=== PATIENT | female | born 1970 | race Caucasian/White ===

== ENCOUNTER 2020-01-01 07:57 | Day surgery (SDC) | payer BC, SELFPAY ==
[~2020-01-01 07:57] MED LIST: Lactated Ringers 1,000 ML IV SCH; Lidocaine 1%/Sod Bicarbonate in NS 8.4% 1 ML Syringe IDERM PRN; Sodium Chloride 0.9% 10 ML Syringe FLUSH PRN
--- NOTE | 2020-01-01 08:22 | PCM.PREANE ---
Preanesthetic Assessment - Anesthesia/Transfusion/Family Hx Anesthesia History: Prior Anesthesia Without Reaction Family History of Anesthesia Reaction: No Transfusion History: No Prior Transfusion(s) Intubation History: Unknown - Review of Systems General: No Symptoms Pulmonary: Cough, Sputum Cardiovascular: No Symptoms Gastrointestinal: No Symptoms Neurological: No Symptoms (Lower back pain:0/10, Right pelvic discomfort rated 1-2/10), Numbness (Right thumb and fingers.) Other: Reports: Sinus Problem (allergic rhinitis/seasonal allergies), Anxiety - Physical Assessment NPO Status Date: 12/31/19 NPO Status Time: 23:30 Vital Signs: HR: 76 B/P: 132/94 Sat: 97% Resp: 16 Temp: 97.4 Height: 1.68 m Weight: 71.668 kg ASA Class: 2 Mental Status: Alert & Oriented x3 Airway Class: Mallampati = 2 Dentition: Reports: Normal Dentition, Caries Thyro-Mental Finger Breadths: 3 Mouth Opening Finger Breadths: 3 ROM/Head Extension: Full Lungs: Clear to Auscultation, Normal Respiratory Effort Cardiovascular: Regular Rate, Regular Rhythm, No Murmurs - Lab Values: Laboratory Last Values WBC 6.61 K/mm3 (3.98-10.04) 12/28/19 07:45 RBC 3.99 M/mm3 (3.98-5.22) 12/28/19 07:45 Hgb 12.0 gm/dl (11.2-15.7) 12/28/19 07:45 Hct 37.5 % (34.1-44.9) 12/28/19 07:45 MCV 94.0 fl (79.4-94.8) 12/28/19 07:45 MCH 30.1 pg (25.6-32.2) 12/28/19 07:45 MCHC 32.0 g/dl (32.2-35.5) L 12/28/19 07:45 RDW Std Deviation 44.7 fL (36.4-46.3) 12/28/19 07:45 Plt Count 391 K/mm3 (182-369) H 12/28/19 07:45 MPV 9.4 fl (9.4-12.3) 12/28/19 07:45 Neut % (Auto) 62.4 % (34.0-71.1) 12/28/19 07:45 Lymph % (Auto) 21.9 % (19.3-51.7) 12/28/19 07:45 [place] % (Auto) 5.9 % (4.7-12.5) 12/28/19 07:45 Eos % (Auto) 9.1 (0.7-5.8) H 12/28/19 07:45 Baso % (Auto) 0.5 % (0.1-1.2) 12/28/19 07:45 Neut # (Auto) 4.13 K/mm3 (1.56-6.13) 12/28/19 07:45 Lymph # (Auto) 1.45 K/mm3 (1.18-3.74) 12/28/19 07:45 [place] # (Auto) 0.39 K/mm3 (0.24-0.36) H 12/28/19 07:45 Eos # (Auto) 0.60 K/mm3 (0.04-0.36) H 12/28/19 07:45 Baso # (Auto) 0.03 K/mm3 (0.01-0.08) 12/28/19 07:45 Urine Color Yellow (Yellow) 12/28/19 08:56 Urine Appearance Clear (Clear) 12/28/19 08:56 Urine pH 6.0 (5.0-8.0) 12/28/19 08:56 Ur Specific [place] 1.025 (1.005-1.030) 12/28/19 08:56 Urine Protein Negative (Negative) 12/28/19 08:56 Urine Glucose (UA) Negative (Negative) 12/28/19 08:56 Urine Ketones Negative (Negative) 12/28/19 08:56 Urine Occult Blood Negative (Negative) 12/28/19 08:56 Urine Nitrite Negative (Negative) 12/28/19 08:56 Urine Bilirubin Negative (Negative) 12/28/19 08:56 Urine Urobilinogen 0.2 (0.2-1.0) 12/28/19 08:56 Ur Leukocyte Esterase Negative (Negative) 12/28/19 08:56 Urine RBC 0-5 /hpf (0-5) 12/28/19 08:56 Urine WBC 0-5 /hpf (0-5) 12/28/19 08:56 Ur Squamous Epith Cells 0-5 /hpf (0-5) 12/28/19 08:56 Urine Bacteria Rare /hpf (FEW) 12/28/19 08:56 Urine Mucus Not seen /hpf (FEW) 12/28/19 08:56 All labs reviewed and noted and within acceptable ranges to proceed with scheduled procedure. - Allergies Allergies/Adverse Reactions: Allergies Allergy/AdvReac Type Severity Reaction Status Date / Time No Known Allergies Allergy Verified 12/31/19 14:10 - Anesthesia Plan Pre-Op Medication Ordered: None - Acknowledgements Anesthesia Type Planned: MAC Pt an Appropriate Candidate for the Planned Anesthesia: Yes Alternatives and Risks of Anesthesia Discussed w Pt/Guardian: Yes Pt/Guardian Understands and Agrees with Anesthesia Plan: Yes PreAnesthesia Questionnaire HEENT History: Reports: Allergic Rhinitis, Impaired Vision, Other (See Below) Other HEENT History: oral surgery Cardiovascular History: Reports: None Respiratory History: Reports: None Gastrointestinal History: Reports: Other (See Below) Other Gastrointestinal History: elevated ALT Genitourinary History: Reports: None 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: 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: Other (See Below) Other OB/BYN History: dysmenorrhea, heavy menses, cervic cryosurgery Musculoskeletal History: Reports: Back Pain, Chronic, Other (See Below) Other Musculoskeletal History: muscle spasms Neurological History: Reports: None Psychiatric History: Reports: Anxiety, Other (See Below) Other Psychiatric History: fatigue Endocrine/Metabolic History: Reports: None Hematologic History: Reports: None Immunologic History: Reports: None Oncologic (Cancer) History: Reports: None Dermatologic History: Reports: None - Past Surgical History Head Surgeries/Procedures: Reports: None HEENT Surgical History: Reports: None Cardiovascular Surgical History: Reports: None Respiratory Surgical History: Reports: None GI Surgical History: Reports: None Female Surgical History: Reports: None Male Surgical History: Reports: None Endocrine Surgical History: Reports: None Neurological Surgical History: Reports: None Musculoskeletal Surgical History: Reports: None Oncologic Surgical History: Reports: None Dermatological Surgical History: Reports: None - SUBSTANCE USE Smoking Status *Q: Never Smoker Recreational Drug Use History: No - HOME MEDS Home Medications: Home Meds Cyclobenzaprine [Flexeril] 10 mg PO BEDTIME PRN 12/31/19 [History] Fluocinonide [Lidex 0.05% Crm] 1 dose TOP ASDIRECTED PRN 12/31/19 [History] Lodoxamide [Alomide] 1 drop EYEBOTH ASDIRECTED PRN 12/31/19 [History] Multivitamin 1 tab PO DAILY 12/31/19 [History] Multivitamin with Minerals [Hair, Skin and Nails] 1 tab PO DAILY 12/31/19 [History] Naproxen 500 mg PO Q12H PRN 12/31/19 [History] Niacin 500 mg PO DAILY 12/31/19 [History] diphenhydrAMINE HCL [Benadryl Allergy] 25 mg PO BEDTIME PRN 12/31/19 [History] - CURRENT (IN HOUSE) MEDS Current Meds: Current Medications Lactated Ringer's (Ringers, Lactated) 1,000 mls @ 125 mls/hr IV ASDIRECTED RICO Stop: 01/01/20 23:00 Lidocaine/Sodium Bicarbonate (Buffered Lidocaine 1% In Ns 8.4%) 0.25 ml IDERM ONETIME PRN PRN Reason: Prior to IV Start Stop: 01/01/20 18:00 Sodium Chloride (Saline Flush) 10 ml FLUSH ASDIRECTED PRN PRN Reason: Keep Vein Open Stop: 01/01/20 18:00
[2020-01-01] MEDS ORDERED: Lidocaine 1% 4 ML ONE (09:18)
[2020-01-01] MEDS ORDERED: Propofol 200 MG/20 ML SDV ONE (09:18)
[2020-01-01] MEDS ORDERED: Midazolam 1 MG/ML 2 ML SDV ONE (09:19)
[2020-01-01] MEDS ORDERED: fentaNYL 100 MCG/2 ML SDV ONE (09:21)
[2020-01-01] MEDS ORDERED: Ketorolac 30 MG/ML SDV ONE (09:40)
[2020-01-01] MEDS ORDERED: Ondansetron 4 MG/2 ML SDV ONE (09:41)
--- NOTE | 2020-01-01 10:10 | PCM48HPAN ---
Post Anesthesia Note - EVALUATION WITHIN 48HRS OF ANESTHETIC Vital Signs in Normal Range: Yes Patient Participated in Evaluation: Yes Respiratory Function Stable: Yes Airway Patent: Yes Cardiovascular Function Stable: Yes Hydration Status Stable: Yes Pain Control Satisfactory: Yes Nausea and Vomiting Control Satisfactory: Yes Mental Status Recovered: Yes Vital Signs: Last Vital Signs Temp 36.3 C 01/01/20 08:15 Pulse 76 01/01/20 08:15 Resp 16 01/01/20 08:15 BP 132/94 H 01/01/20 08:15 Pulse Ox 97 01/01/20 08:15
[2020-01-01] MEDS ORDERED: Ondansetron 4 MG/2 ML SDV IVPUSH PRN (10:12)
[2020-01-01] MEDS ORDERED: Acetaminophen/oxyCODONE 325-5 MG Tab PO PRN (10:12)
--- NOTE | 2020-01-01 10:18 | PCM.OPNOTE ---
- General Post-Op/Procedure Note Date of Surgery/Procedure: 01/01/20 Operative Procedure(s): Hysteroscopy and dilation and curettage Findings: Uterus sounded to approximately 8 cm. There was what appears to be fibroid which is subendometrial/intramural extending into the myometrium posteriorly approximately 1 cm in diameter in the mid posterior wall of the uterus. There is another fibroid approximately the same size and in the same subendometrial/intramural position located in the lower left portion of the uterus just inside the internal os. No significant abnormalities otherwise were noted. Tubal ostia were identified. On bimanual exam under anesthesia no abnormalities were noted. Pre Op Diagnosis: 1. Postmenopausal uterine bleeding. 2. Thickened endometrium. 3. Dysmenorrhea Post-Op Diagnosis: Same with uterine fibroids [id number] wall of the uterus. Anesthesia Technique: MAC Primary Surgeon: Fabrizio Azul Secondary Surgeon: uJne Sandoval Anesthesia Provider: Aida Mendiola Pathology: Endometrial curettings Fluid Replacement, Intraop: 700 EBL in mLs: 20 Complications: None Condition: Good Free Text/Narrative:: Surgery duration: 8 minutes Procedure: The patient is taking the operative placed in a supine position on the operating table. She received 2 g of Ancef preoperatively for infection prophylaxis and had sequential compression stockings in place for DVT prophylaxis. Patient was given MAC anesthesia. She is placed in a dorsal lithotomy position and prepped and draped in usual fashion. An exam under anesthesia was performed. Findings as described above. A weighted speculum was placed in the vagina. Cervix is visualized. It was grasped anteriorly with a single-tooth tenaculum. Uterus was then sounded to a depth of 8 cm. It is from the anterior, mid position. The cervix was dilated to entrance of a 5 mm 12 rigid hysteroscope. This was placed without problem and normal saline was used as a distending medium. The Julio Cesar cavity was visualized. Findings as described above. Findings were as described above. No polypoid structures were noted. Only the 2 fibroids as described above.. After this is performed a D&C was performed. Moderate amount tissue was obtained. Minimal bleeding was encountered. Hysteroscope was then placed back into the endometrial cavity. Blood was flushed out and the findings were consistent relatively normal-appearing endometrial cavity. At this point the scope was removed. The vagina was cleared of old blood, the cervix was released and the weighted speculum was removed. Patient was returned to supine position and awakened from general anesthesia. She tolerated the procedure well and operating room in good condition.
== END 2020-01-01 11:09 | disposition home or self-care (01) ==
LOC: JD.SDS 07:57
PROVIDERS: ATTEND Obstetrics & Gynecology
DX: D25.1 Intramural leiomyoma of uterus (principal); N85.8 Other specified noninflammatory disorders of uterus; F41.9 Anxiety disorder, unspecified; Z79.899 Other long term (current) drug therapy
CPT/HCPCS: 36415; 58558; 81001; 85025; J1885; J2001; J2250; J2405; J2704; J3010; J7120; 00952

== ENCOUNTER 2020-04-26 18:44 | Emergency (ER) | payer BC, OTHER ==
[2020-04-26] MEDS ORDERED: Proparacaine 0.5% Ophth Soln 15 ML Bottle EYERT STA (20:29)
[2020-04-26] MEDS ORDERED: Proparacaine 0.5% Ophth Soln 15 ML Bottle ONE (20:30)
[2020-04-26] MEDS ORDERED: Fluorescein 1 MG Ophth Strip EYELF ONE (20:40)
--- NOTE | 2020-04-26 21:58 | EDM.PDOC ---
ED HPI GENERAL MEDICAL PROBLEM - General Chief Complaint: Eye Problems Stated Complaint: RIGHT EYE PAIN/HARD TO FOCUS Time Seen by Provider: 04/26/20 19:46 Source of Information: Reports: Patient, RN Notes Reviewed History Limitations: Reports: No Limitations - History of Present Illness INITIAL COMMENTS - FREE TEXT/NARRATIVE: Patient is a 50-year-old female presenting to the emergency department with complaints of pain and pressure in her right eye as well as difficulty focusing intermittently. Symptoms began last evening. She does complain of intermittent headaches associated with the pressure. She has had no nasal congestion or drainage. Denies any history of eye problems or migraines. She has had no fever or chills. Right Eye Pain Score (Numeric/FACES): 6 - Related Data Allergies Allergy/AdvReac Type Severity Reaction Status Date / Time No Known Allergies Allergy Verified 04/26/20 19:15 Home Meds: Home Meds Cyclobenzaprine [Flexeril] 10 mg PO BEDTIME PRN 12/31/19 [History] Fluocinonide [Lidex 0.05% Crm] 1 dose TOP ASDIRECTED PRN 12/31/19 [History] Lodoxamide [Alomide] 1 drop EYEBOTH ASDIRECTED PRN 12/31/19 [History] Multivitamin with Minerals [Hair, Skin and Nails] 1 tab PO DAILY 12/31/19 [History] Niacin 500 mg PO DAILY 12/31/19 [History] diphenhydrAMINE HCL [Benadryl Allergy] 25 mg PO BEDTIME PRN 12/31/19 [History] Ibuprofen 600 mg PO Q4HR PRN #30 tablet 01/01/20 [Rx] Doxycycline [Vibra-Tabs] 100 mg PO Q12HR 10 Days #19 tab 04/26/20 [Rx] Gabapentin [Neurontin] 300 mg PO BID 04/26/20 [History] Past Medical History HEENT History: Reports: Allergic Rhinitis, Impaired Vision, Other (See Below) Other HEENT History: oral surgery Cardiovascular History: Reports: None Respiratory History: Reports: None Gastrointestinal History: Reports: Other (See Below) Other Gastrointestinal History: elevated ALT Genitourinary History: Reports: None CONCIERGE MANAGER History: Reports: Other (See Below) Other CONCIERGE MANAGER History: dysmenorrhea, heavy menses, cervic cryosurgery Musculoskeletal History: Reports: Back Pain, Chronic, Other (See Below) Other Musculoskeletal History: muscle spasms Neurological History: Reports: None Psychiatric History: Reports: Anxiety, Other (See Below) Other Psychiatric History: fatigue Endocrine/Metabolic History: Reports: None Hematologic History: Reports: None Immunologic History: Reports: None Oncologic (Cancer) History: Reports: None Dermatologic History: Reports: None - Past Surgical History Head Surgeries/Procedures: Reports: None HEENT Surgical History: Reports: None Cardiovascular Surgical History: Reports: None Respiratory Surgical History: Reports: None GI Surgical History: Reports: None Female Surgical History: Reports: None Endocrine Surgical History: Reports: None Neurological Surgical History: Reports: None Musculoskeletal Surgical History: Reports: None Oncologic Surgical History: Reports: None Dermatological Surgical History: Reports: None Social & Family History - Tobacco Use Tobacco Use Status *Q: Never Tobacco User - Caffeine Use Caffeine Use: Reports: Coffee - Recreational Drug Use Recreational Drug Use: No ED ROS GENERAL - Review of Systems Review Of Systems: See Below Constitutional: Reports: No Symptoms HEENT: Reports: Eye Pain, Vision Change Respiratory: Reports: No Symptoms Cardiovascular: Reports: No Symptoms Endocrine: Reports: No Symptoms GI/Abdominal: Reports: No Symptoms : Reports: No Symptoms Musculoskeletal: Reports: No Symptoms Skin: Reports: No Symptoms Neurological: Reports: No Symptoms Psychiatric: Reports: No Symptoms Hematologic/Lymphatic: Reports: No Symptoms Immunologic: Reports: No Symptoms ED EXAM GENERAL W FULL EYE - Physical Exam Exam: See Below General Appearance: Alert, WD/WN, No Apparent Distress Eye Exam: Bilateral Eye: Normal Fundi, Normal Inspection, PERRL Visual Acuity (R) 20/: 25 Visual Acuity (L) 20/: 20 With Correction: No IOP (R) in mmH (+/- 5%) IOP Measure with (Equipment): Tonopen Eyelids: Bilateral: Normal Appearance Conjunctiva & Sclera: Bilateral: Normal Appearance Cornea Exam: Bilateral: Normal Appearance (with fluorescein) Extraocular Movements: Bilateral: Intact Pupils: Normal Accommodation Pupillary Reaction: Bilateral: Brisk Ears: Normal External Exam, Normal Canal, Hearing Grossly Normal, Normal TMs Head: Atraumatic, Normocephalic. No: Facial Swelling, Sinus Tenderness Respiratory/Chest: No Respiratory Distress, Lungs Clear, Normal Breath Sounds, No Accessory Muscle Use, Chest Non-Tender Cardiovascular: Normal Peripheral Pulses, Regular Rate, Rhythm, No Edema, No Gallop, No JVD, No Murmur, No Rub Neurological: Alert, Oriented, CN II-XII Intact, Normal Cognition, Normal Gait, Normal Reflexes, No Motor/Sensory Deficits Psychiatric: Normal Affect, Normal Mood Skin Exam: Warm, Dry, Intact, Normal Color, No Rash Course - Vital Signs Last Recorded V/S: Last Vital Signs Temp 97.0 F 04/26/20 19:04 Pulse 75 04/26/20 20:44 Resp 16 04/26/20 20:44 BP 143/79 H 04/26/20 20:46 Pulse Ox 95 04/26/20 20:44 - Orders/Labs/Meds Meds: Medications Discontinued Medications Generic Name Dose Route Start Last Admin Trade Name Philq PRN Reason Stop Dose Admin Doxycycline Hyclate 100 mg 04/26/20 22:02 04/26/20 22:08 Vibramycin PO 04/26/20 22:03 100 mg ONETIME ONE Administration Fluorescein Sodium 1 mg 04/26/20 20:40 04/26/20 20:43 Ful-Vanita EYELF 04/26/20 20:41 1 mg ONETIME ONE Administration Proparacaine HCl 1 ml 04/26/20 20:29 04/26/20 20:43 Proparacaine 0.5% Ophth Soln EYERT 04/26/20 20:30 1 applic STAT STA Administration Proparacaine HCl Confirm 04/26/20 20:30 04/26/20 20:40 Proparacaine 0.5% Ophth Soln Administered 04/26/20 20:31 Not Given Dose 15 ml .ROUTE .STK-MED ONE - Re-Assessments/Exams Free Text/Narrative Re-Assessment/Exam: Patient is a 50-year-old female presenting to the emergency department with complaints of pain and pressure to her right eye. Exam is grossly unremarkable. There is no conjunctival injection. Pupils are equal and reactive with consensual response bilaterally. She has normal extraocular movement, however she does complain of slightly worsening pain with lateral gaze of the right eye. Intraocular pressure was found to be 165%. Visual acuity is 20/20 in that eye. Fluorescein stain exam was completed and there was no visible corneal abrasion. I have ordered an orbital CT.. Once this is completed, I will consult ophthalmology. 04/26/20 21:57 CT scan was found to be normal. Spoke with the jewelry cutter on-call at [facility], Dr. Acosta. He is suspicious that this could be sinus related. Recommended that I start her on antibiotic treatment for acute sinusitis. He would like her to call his office tomorrow to follow-up. I will provide her with this number. She states that she does not respond well to Augmentin, therefore I will start her on doxycycline for treatment of bacterial sinusitis. First dose to be given tonight. Discharge instructions as documented. Departure - Departure Time of Disposition: 21:58 Disposition: Home, Self-Care 01 Condition: Good Clinical Impression: Pain, eye, right - Discharge Information *PRESCRIPTION DRUG MONITORING PROGRAM REVIEWED*: No *COPY OF PRESCRIPTION DRUG MONITORING REPORT IN PATIENT DENEEN: No Prescriptions: Doxycycline [Vibra-Tabs] 100 mg PO Q12HR 10 Days #19 tab Referrals: Richie Miller MD [Primary Care Provider] - Norbert Bell MD [Physician] - Forms: ED Department Discharge Additional Instructions: You were seen in the emergency department today for pain and pressure to your right eye. Exam findings including CT scan of the right orbit were found to be normal. We consulted with Dr. Acosta, the jewelry cutter on-call. He recommended that we start treatment for possible sinusitis as this often causes this type of pain. You been started on doxycycline. First dose was given in the ER this evening. Take the remaining doses as prescribed. He was like you to contact his office tomorrow to follow-up with how you are doing. The number is [phone]. You may use Tylenol or ibuprofen as needed for discomfort. Return to ER as needed. Sepsis Event Note (ED) - Evaluation Sepsis Screening Result: No Definite Risk
[2020-04-26] MEDS ORDERED: Doxycycline 100 MG Cap PO ONE (22:02)
--- NOTE | 2020-04-27 10:56 | CT ---
CT facial bones Technique: Multiple axial sections were obtained from above the external auditory canals inferiorly through the orbits. Reconstructed coronal and sagittal images were obtained. Findings: Visualized paranasal sinuses show nothing acute. Visualized mastoid sinuses show nothing acute. Mild nasal septal deviation is appreciated. Right and left globes are symmetric. No rectal bulbar mass is seen. Extraocular muscles are symmetric. Optic nerves also appear to be symmetric. Both lacrimal glands are symmetric. No acute osseous abnormality is appreciated. Impression: 1. Nothing acute is seen on CT study of the facial bones centered to the orbits. 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
== END 2020-04-26 22:09 | disposition home or self-care (01) ==
LOC: JD.ED 18:44
DX: H57.11 Ocular pain, right eye (principal); Z79.899 Other long term (current) drug therapy
CPT/HCPCS: 70480; 99283; A9270; 70482-26

== ENCOUNTER → 2020-06-17 | Day surgery (SDC) | payer BC, OTHER ==
[~2020-06-17] MED LIST changes: -Lactated Ringers 1,000 ML IV SCH; -Lidocaine 1%/Sod Bicarbonate in NS 8.4% 1 ML Syringe IDERM PRN; +Phenylephrine 2.5% Ophth Soln 2 ML Bot EYEBOTH SCH; -Sodium Chloride 0.9% 10 ML Syringe FLUSH PRN; +Tropicamide 1% Ophth Soln 15 ML Bottle EYEBOTH SCH
[2020-06-17] MEDS: Brimonidine 0.2% Ophth Soln 5 ML Bottle EYEBOTH SCH ×2 (10:37→11:40)
== END ==
LOC: JD.SDS 09:58
PROVIDERS: ATTEND Ophthalmology
DX: H40.033 Anatomical narrow angle, bilateral (principal); H40.043 Steroid responder, bilateral; H50.112 Monocular exotropia, left eye; I10 Essential (primary) hypertension; H25.13 Age-related nuclear cataract, bilateral; H02.836 Dermatochalasis of left eye, unspecified eyelid; H02.833 Dermatochalasis of right eye, unspecified eyelid